=== PATIENT | male | born 1985 | race Two or more races ===

== ENCOUNTER 2018-05-25 22:19 | Emergency (ER) | payer OTHER ==
--- NOTE | 2018-05-25 22:30 | EDPHY ---
H & P Stated Complaint: CP X 1 HR Time Seen by Provider: 05/25/18 22:29 HPI/ROS: HPI CHIEF COMPLAINT: Burning discomfort in chest. HISTORY OF PRESENT ILLNESS: 33-year-old male, otherwise healthy denies any significant medical history, does not take any daily medications presents to the emergency room with chest pain. He describes it as a burning sensation in the center of his chest. Patient does state at times radiates around to his left back. 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 He has never had this before. He denies any shortness of breath or pleuritic pain. Denies chest pressure denies heavy weight on his chest, describes it at burning sensation left chest, radiating to left back. No numbness or tingling no arm pain no jaw pain or neck pain. Denies any alcohol this evening or spicy foods. Of note this patient is Kuwaiti-speaking only. I offered to hand heel seat fitter however they declined. His [id number] speaks fluent Bengali and Kuwaiti and translates appropriately. Declined System Analyst. Past Medical History: Denies significant medical history Past Surgical History: Left arm surgery Social History: Denies drugs alcohol tobacco Family History: Noncontributory ROS REVIEW OF SYSTEMS: 10 Systems were reviewed and negative with the exception of the elements mentioned in the history of present illness. Exam Constitutional nontoxic no acute distress, triage nursing summary reviewed, vital signs reviewed, awake/alert. Eyes normal conjunctivae and sclera, EOMI, PERRLA. HENT normal inspection, atraumatic, moist mucus membranes, no epistaxis, neck supple/ no meningismus, no raccoon eyes. Respiratory clear to auscultation bilaterally, normal breath sounds, no respiratory distress, no wheezing. Cardiovascular rate normal, regular rhythm, no murmur, no edema, distal pulses normal. Gastrointestinal soft, non-tender, no rebound, no guarding, normal bowel sounds, no distension, no pulsatile mass. Genitourinary no CVA tenderness. Musculoskeletal no midline vertebral tenderness, full range of motion, no calf swelling, no tenderness of extremities, no meningismus, good pulses, neurovascularly intact. Skin pink, warm, & dry, no rash, skin atraumatic. Neurologic awake, alert and oriented x 3, AAOx3, moves all 4 extremities equally, motor intact, sensory intact, CN II-XII intact, normal cerebellar, normal vision, normal speech. Psychiatric normal mood/affect. Heme/Lymph/Immune no lymphadenopathy. Differential Diagnosis: Differential diagnosis includes but is not limited to: ACS, atypical chest pain, pneumothorax, pneumonia, pulmonary embolism, aortic dissection, congestive heart failure, tumor, musculoskeletal pain, esophageal pain, GERD, peptic ulcer disease, pancreatitis Medical Decision Making: Plan for this patient IV establishment IV fluid bolus , director of cardiac cath lab, chest x-ray, EKG, troponin, D-dimer. Rule out acute coronary syndrome Burning discomfort in his chest will give GI cocktail to see if this improves. Re-evaluation: EKG interpretation by me on record in [facility] system. Impression time of EKG 2236, sinus rhythm rate of 77 nonspecific intraventricular conduction delay however no signs of acute ischemia. D-dimer 0.27 Troponin negative. Chest x-ray unremarkable. 0245: Patient complains of further chest pain left-sided burning sensation. It was initially relieved by GI cocktail. Repeat EKG and troponin ordered due to repeat cp Patient's repeat EKG does not show any acute ischemia. EKG interpretation by me on record in [facility] system. Impression time of EKG 2:55 a.m., sinus bradycardia rate of 45, nonspecific intraventricular conduction delay. There is no signs of acute ischemia here on this EKG. Plan for observation due to ongoing CP. Plan for re-evaluation with repeat troponin EKG. Patient states he has had intermittent chest pain while in the emergency room. ( at times he was sleeping) I do not have a great explanation for his chest pain, however give ongoing cp intermittant He has troponins that are negative D-dimer negative. Initially improved after GI cocktail However given that he is having ongoing chest pain I did consult Cardiology. 0530AM: Spoke with Dr. Fulton, he reviewed the patient's EKGs. He recommends admission for further rule out and echocardiogram. Would like the patient admitted to the hospitalist service. His repeat EKG done at 5:16 a.m. Shows sinus bradycardia rate of 47 with a nonspecific intraventricular conduction delay. No acute ischemia. When I compare this to his old EKG looks very similar. 0536: Updated patient about treatment plan. Patient agrees for hospital observation today for chest pain. Agrees for echocardiogram. Cardiology consult Dr. Fulton. Echocardiogram ordered. Hospitalist service consult Dr. Alda Whitfield accepts hospital admission. Reason for hospital admission intermittent chest pain, however rather unremarkable workup in the emergency room but plan for echocardiogram and cardiology to see. Source: Patient - Personal History Current Tetanus Diphtheria and Acellular Pertussis (TDAP): Yes - Medical/Surgical History Hx Asthma: No Hx Chronic Respiratory Disease: No Hx Diabetes: No Hx Cardiac Disease: No Hx Renal Disease: No Hx Cirrhosis: No Hx Alcoholism: No Hx HIV/AIDS: No Hx Splenectomy or Spleen Trauma: No Other PMH: L ARM - Social History Smoking Status: Never smoked Constitutional: Initial Vital Signs Temperature (C) 36.9 C 05/25/18 22:22 Heart Rate 81 05/25/18 22:22 Respiratory Rate 16 05/25/18 22:22 Blood Pressure 131/80 H 05/25/18 22:22 O2 Sat (%) 96 05/25/18 22:22 O2 Delivery Mode Room Air Allergies/Adverse Reactions: No Known Allergies Allergy (Unverified 05/25/18 22:21) Home Medications: Medication Instructions Recorded Ranitidine HCl 150 mg PO DAILY #30 capsule 05/26/18 Medical Decision Making - Data Points Laboratory Results: Laboratory Results 05/25/18 22:41 05/25/18 22:41 Medications Given: Discontinued Medications Al Hydroxide/Mg Hydroxide (Maalox Susp) 30 ml PO ONCE ONE Stop: 05/25/18 22:36 Last Admin: 05/25/18 22:44 Dose: 30 ml Hyoscyamine Sulfate (Levsin, Hyomax-Sl) 0.25 mg PO ONCE ONE Stop: 05/25/18 22:36 Last Admin: 05/25/18 22:44 Dose: 0.25 mg Sodium Chloride (Ns) 1,000 mls @ 0 mls/hr IV EDNOW ONE; Wide Open PRN Reason: Protocol Stop: 05/25/18 22:36 Last Admin: 05/25/18 22:47 Dose: 1,000 mls Lidocaine (Lidocaine 2% Viscous) 15 ml PO ONCE ONE Stop: 05/25/18 22:36 Last Admin: 05/25/18 22:44 Dose: 15 ml Point of Care Test Results: Chemistry 05/26/18 05/26/18 05/25/18 05:22 02:51 22:45 POC Troponin I 0.00 ng/mL ng/mL 0.00 ng/mL ng/mL 0.00 ng/mL ng/mL (0.00-0.08) (0.00-0.08) (0.00-0.08) Departure - Departure Disposition: [facility] Inpatient Acute Clinical Impression: Chest pain Qualifiers: Chest pain type: unspecified Qualified Code(s): R07.9 - Chest pain, unspecified Condition: Good
[2018-05-25] MEDS ORDERED: MAG HYDROX/AL HYDROX/SIMETH 30 ML UDCUP PO ONE (22:35)
[2018-05-25] MEDS ORDERED: LIDOCAINE 2% VISCOUS 15 ML UDCUP PO ONE (22:35)
[2018-05-25] MEDS ORDERED: NS 1,000 ML IV ONE (22:35)
[2018-05-25] MEDS ORDERED: HYOSCYAMINE SULFATE 0.125 MG TAB PO ONE (22:35)
[2018-05-25 22:55] LABS: PLATELET COUNT 262 10^3/uL (150-400)
[2018-05-25 23:03] LABS: INR 0.96 (0.83-1.16)
[2018-05-26] MEDS ORDERED: ASPIRIN 325 MG TAB PO ONE (05:31)
[2018-05-26] MEDS ORDERED: KETOROLAC 15 MG/1 ML SDV IVP ONE (05:32)
[2018-05-26] MEDS ORDERED: ONDANSETRON 4 MG/2 ML VIAL IVP PRN (05:36)
[2018-05-26] MEDS ORDERED: ACETAMINOPHEN 325 MG TAB PO PRN (05:36)
[2018-05-26] MEDS ORDERED: ONDANSETRON DISINTEGRATING 4 MG TAB PO PRN (05:36)
--- NOTE | 2018-05-26 06:10 | PDGENHP ---
History and Physical - Chief Complaint Chest pain - History of Present Illness 33 yo M w/ no PMHx presents with chest pain. The patient tells me he began to noted moderate to severe L sided chest pain this evening while watching TV. The pain lasted over an hour. He has never had pain like this in the past. He has no personal or family history of cardiac disease. He denies tobacco or drug use. Evaluation in the ED notable for negative troponin and ECG with minimal ST elevations in anterior leads, which may be J point elevation. Cardiology was called from the ED (Dr. Fulton) who requested the patient be admitted and an echocardiogram obtained. Cardiology will see him this morning. Case discussed with ED physician Dr. Milligan; records reviewed and summarized above. History Information - Allergies/Home Medication List Allergies/Adverse Reactions: No Known Allergies Allergy (Unverified 05/25/18 22:21) Home Medications: NK [No Known Home Meds] 05/25/18 [Last Taken Unknown] I have personally reviewed and updated: family history, medical history - Past Medical History no pertinent PMH - Surgical History Additional surgical history: L arm surgery for fracture - Family History Additional family history: Denies family hx of cardiac disease - Social History Smoking Status: Never smoked Review of Systems Review of Systems: ROS: 10pt was reviewed & negative except for what was stated in HPI & below Physical Exam Physical Exam: Temp Pulse Resp BP Pulse Ox 36.9 C 57 L 18 108/67 94 05/25/18 22:22 05/26/18 03:38 05/26/18 03:38 05/26/18 03:38 05/26/18 03:38 Constitutional: no apparent distress, obese Eyes: PERRL, EOMI Ears, Nose, Mouth, Throat: moist mucous membranes, no oral mucosal ulcers Cardiovascular: regular rate and rhythym, no murmur, rub, or gallop Respiratory: no respiratory distress, clear to auscultation Gastrointestinal: normoactive bowel sounds, soft, non-tender abdomen Skin: warm, normal color Musculoskeletal: full muscle strength, no muscle tenderness Neurologic: AAOx3, CN II-XII Intact Psychiatric: interacting appropriately, not anxious Lab Data & Imaging Review 05/25/18 22:41 05/25/18 22:41 WBC 5.79 10^3/uL (3.80-9.50) 05/25/18 22:41 RBC 4.88 10^6/uL (4.40-6.38) 05/25/18 22:41 Hgb 14.8 g/dL (13.7-17.5) 05/25/18 22:41 Hct 43.2 % (40.0-51.0) 05/25/18 22:41 MCV 88.5 fL (81.5-99.8) 05/25/18 22:41 MCH 30.3 pg (27.9-34.1) 05/25/18 22:41 MCHC 34.3 g/dL (32.4-36.7) 05/25/18 22:41 RDW 11.7 % (11.5-15.2) 05/25/18 22:41 Plt Count 262 10^3/uL (150-400) 05/25/18 22:41 MPV 9.5 fL (8.7-11.7) 05/25/18 22:41 Neut % (Auto) 49.2 % (39.3-74.2) 05/25/18 22:41 Lymph % (Auto) 38.9 % (15.0-45.0) 05/25/18 22:41 Bracken % (Auto) 8.8 % (4.5-13.0) 05/25/18 22:41 Eos % (Auto) 2.6 % (0.6-7.6) 05/25/18 22:41 Baso % (Auto) 0.3 % (0.3-1.7) 05/25/18 22:41 Nucleat RBC Rel Count 0.0 % (0.0-0.2) 05/25/18 22:41 Absolute Neuts (auto) 2.85 10^3/uL (1.70-6.50) 05/25/18 22:41 Absolute Lymphs (auto) 2.25 10^3/uL (1.00-3.00) 05/25/18 22:41 Absolute Monos (auto) 0.51 10^3/uL (0.30-0.80) 05/25/18 22:41 Absolute Eos (auto) 0.15 10^3/uL (0.03-0.40) 05/25/18 22:41 Absolute Basos (auto) 0.02 10^3/uL (0.02-0.10) 05/25/18 22:41 Absolute Nucleated RBC 0.00 10^3/uL (0-0.01) 05/25/18 22:41 Immature Gran % 0.2 % (0.0-1.1) 05/25/18 22:41 Immature Gran # 0.01 10^3/uL (0.00-0.10) 05/25/18 22:41 PT 13.0 SEC (12.0-15.0) 05/25/18 22:41 INR 0.96 (0.83-1.16) 05/25/18 22:41 APTT 26.1 SEC (23.0-38.0) 05/25/18 22:41 D-Dimer < 0.27 ug/mLFEU (0.00-0.50) 05/25/18 22:41 Sodium 140 mEq/L (135-145) 05/25/18 22:41 Potassium 3.8 mEq/L (3.5-5.2) 05/25/18 22:41 Chloride 109 mEq/L (97-110) 05/25/18 22:41 Carbon Dioxide 24 mEq/l (22-31) 05/25/18 22:41 Anion Gap 7 mEq/L (6-14) 05/25/18 22:41 BUN 20 mg/dL (7-23) 05/25/18 22:41 Creatinine 0.8 mg/dL (0.7-1.3) 05/25/18 22:41 Estimated GFR > 60 05/25/18 22:41 Glucose 134 mg/dL (70-100) H 05/25/18 22:41 Calcium 9.2 mg/dL (8.5-10.4) 05/25/18 22:41 Magnesium 2.0 mg/dL (1.6-2.3) 05/25/18 22:41 Total Bilirubin 0.4 mg/dL (0.1-1.4) 05/25/18 22:41 Conjugated Bilirubin 0.1 mg/dL (0.0-0.5) 05/25/18 22:41 Unconjugated Bilirubin 0.3 mg/dL (0.0-1.1) 05/25/18 22:41 AST 21 IU/L (17-59) 05/25/18 22:41 ALT 27 IU/L (21-72) 05/25/18 22:41 Alkaline Phosphatase 63 IU/L (38-126) 05/25/18 22:41 POC Troponin I 0.00 ng/mL (0.00-0.08) 05/26/18 05:22 NT-Pro-B Natriuret Pep < 11 pg/mL (0-125) 05/25/18 22:41 Total Protein 6.8 g/dL (6.3-8.2) 05/25/18 22:41 Albumin 4.2 g/dL (3.5-5.0) 05/25/18 22:41 Lipase 87 IU/L (23-300) 05/25/18 22:41 Imaging Review: Imaging Impressions Chest X-Ray 05/25/18 22:36 Impression: No acute abnormality. Visualized and Interpreted EKG results: Yes EKG Interpretation: Positive for: normal sinsus rhythm, other (Minimal anterior MEGAN's, J point?) Assessment & Plan Assessment: 33 yo M presents with chest pain. Plan: 1. Chest pain - Unclear etiology; no prior cardiac history. Troponin negative, ECG (personally reviewed/interpreted) with minimal anterior MEGAN's, which appear like benign J-point elevation. Cardiology consulted in the ED who requested echocardiogram and admission for observation. - Monitor on telemetry, repeat troponin at 100 - TTE ordered - Cardiology will see this morning - NTG, ECG PRN for chest pain Diet - Regular Code - Full Ppx - Low risk, ambulate TID Dispo - Admit under observation status
[2018-05-26] MEDS ORDERED: NITROGLYCERIN 0.4 MG BTL SL PRN (06:21)
[2018-05-26] MEDS ORDERED: FAMOTIDINE 20 MG/NACL 50 ML IV SCH (09:00)
--- NOTE | 2018-05-26 09:24 | GCON ---
[f rep st] CONSULTATION CARDIOLOGY CONSULTATION CHIEF COMPLAINT: Chest pain. HISTORY OF PRESENT ILLNESS: This is a 33-year-old male who presented to [facility] with complaints of chest pain. The patient describes the pain as burning discomfort in his substernal area with some radiati on to his left breast. He said that it initiated at rest yesterday. He came to the emergency room f or further evaluation. He has never had this pain before and never had it during exertion. No drug use or alcohol use, and no smoking. Blood pressure and heart rate are currently stable. ECG in the ER showed what appeared to be sinus rhythm with minimal J-point elevation. Troponins have been negat francisco x3 sets. Currently, the patient indicates that his pain has decreased significantly from an 8/10 down to 3/10, though it is still sore around his left breast region. PAST MEDICAL HISTORY: No significant past medical history. PAST SURGICAL HISTORY: No surgical history. Apparently, some remote history of left arm surgery. SOCIAL HISTORY: No drugs, alcohol, or smoking according to the patient. FAMILY HISTORY: Patient denies any history of coronary artery disease in the family. REVIEW OF SYSTEMS: Patient currently denies any visual changes. No headache. No throat pain. No j aw pain. No ear pain. No back pain. He does indicate a dull substernal discomfort around his midst ernum/left breast region. No lower abdominal pain. No lower extremity pain. No neurologic deficits . PHYSICAL EXAMINATION: VITAL SIGNS: Patient afebrile 96, blood pressure 110/70, heart rate 72, respi ratory rate 12, sat 95% on room air. HEENT: Pupils equal, round, and reactive to light and accommod ation. Extraocular movements intact. CARDIOVASCULAR: Regular rate and rhythm, S1, S2. LUNGS: Gomez ar to auscultation bilaterally. ABDOMEN: Soft, nontender, no guarding. EXTREMITIES: No clubbing, no cyanosis, no edema. NEUROLOGIC: Alert and oriented x3. LABORATORY VALUES: Show troponins negative x3 sets. ECG currently, a repeat, shows normal sinus rhy thm with ST evolution. ASSESSMENT AND PLAN: Chest pain. At this time, the patient's chest pain may be musculoskeletal vers us gastroesophageal reflux disease. I will start him on Pepcid 20 mg IV twice daily, first dose to b e given now. Check an echocardiogram. Given the patient's improved symptoms with just conservative management, as well as the fact that troponins are negative x3 sets and there are no ECG changes, as well as his age and lack of risk factors, I feel that we can continue with a conservative approach at this point, and if the patient is pain-free later this afternoon, he would be cleared for discharge to follow up as an outpatient. /[id number]/MODL
--- NOTE | 2018-05-26 09:36 | ECHO ---
[email or web address] [address] [address] Main: [phone] Fax: [email or web address] Echocardiogram Name: RITU FRIAS MR#: [id number] Study Date: 05/26/2018 Study Time: 08:39 AM Date of : 1985 Age: 33 year(s) Height: 182.9 cm (72 in.) Weight: 113.4 kg (250 lb.) BSA: 2.34 m2 Gender: Male Examination: Echo Indication: cp Image Quality: Adequate Contrast: Requested by: Diego Cárdenas BP: 108 mmHg/67 mmHg Heart Rate: Rhythm: Indication: cp Procedure Staff Contact Manager: Abby Farrell RDCS Reading Physician: oJsh Anaya MD Requesting Provider: Conclusions: Low normal left ventricular systolic function. EF is 51 %. Mild mitral valve regurgitation is present. Mild tricuspid regurgitation is present. The pulmonary artery pressure is normal. Measurements: Chambers Valvular Assessment AV/MV Valvular Assessment TV/PV Normal Normal Normal Name Value Range Name Value Range Name Value Range Ao Jodie (2D): 3.8 cm (1.4 cm-2.6 AV Vmax: 0.99 m/s (1 m/s-1.7 TR Vmax: 2.13 mm/s ( - ) cm) m/s) TR PGmax: 18 mmHg ( - ) IVSd (2D): 0.9 cm (0.6 cm-1.1 AV maxP mmHg ( - ) syst. PAP: 23 mmHg ( - ) cm) AV meanP mmHg ( - ) PV Vmax: 0.73 m/s (0.6 m/s-0.9 LVDd (2D): 5.4 cm (4.2 cm-5.9 LVOT Vmax: 0.74 m/s (0.7 m/s-1.1 m/s) cm) m/s) PV PGmax: 2 mmHg ( - ) LVDs (2D): 3.8 cm (2.1 cm-4 VIKI (Vmax): 3.4 cm2 ( - ) cm) VIKI (VTI): 3.0 cm ( - ) LVPWd (2D): 0.9 cm (0.6 cm-1 MV E Vmax: 0.76 m/s ( - ) cm) MV A Vmax: 0.40 m/s ( - ) LVOTd 2.4 cm 2.4 cm mm MV E/A: 1.90 ( - ) LVEF (BP): 51 % (>=55 %) MV PHT: 0.064 s ( - ) RVDd(2D): 3.9 cm (1.9 cm-3.8 cmmm) MVA (PHT): 3.4 s ( - ) Continued Measurements: Chambers Valvular Assessment AV/MV Valvular Assessment TV/PV Name Value Name Value Name Value LADs: 3.7 cm MV DecTime: 208 m/s CVP (est.): 5 mmHg Patient: RITU FRIAS Study Date: 05/26/2018 Page 1 of 2 08:39 AM LADs Lon.8 cm MV E/E' Septal: 8.70 LA Area: 20.7 cm2 MV E/E' Lateral: 7.90 LA Volume: 64 ml LA Volume Index: 27.4 ml/m2 RA Area: 19.7 cm2 Additional Vessels Name Value Ao Ascendin.1 cm Inferior Vena Cava: 1.6 cm Findings: Left Ventricle: Normal size left ventricle. No LV hypertrophy. Low normal left ventricular systolic function. EF is 51 %. Normal diastolic LV function. Right Ventricle: Normal size right ventricle. Normal RV function. Left Atrium: The left atrium is normal in size. Right Atrium: The right atrium is normal in size. Mitral Valve: The mitral valve is normal in appearance and function. Mild mitral valve regurgitation is present. No mitral stenosis is present. Aortic Valve: The aortic valve is tri-leaflet. There is no significant aortic valve regurgitation. No aortic valve stenosis is present. Tricuspid Valve: The tricuspid valve is normal in appearance and function. Mild tricuspid regurgitation is present. The pulmonary artery pressure is normal. Right ventricular systolic pressure measures 23mmHg. Pulmonic Valve: The pulmonic valve is normal in appearance and function. There is no pulmonic regurgitation seen. Aorta: The aorta is normal. Normal size aortic root measuring 3.8 cm. Normal size ascending aorta measuring 3.1 cm. IVC: The IVC is normal sized. Pericardium: No pericardial effusion. (No Signature Object) Patient: RITU FRIAS Study Date: 05/26/2018 Page 2 of 2 08:39 AM [id number]
[2018-05-26 15:14] VITALS: BP 122/73
--- NOTE | 2018-05-28 07:33 | CPEKG ---
Test Reason : OPEN Blood Pressure : / mmHG Vent. Rate : 048 BPM Atrial Rate : 048 BPM P-R Int : 145 ms QRS Dur : 123 ms QT Int : 466 ms P-R-T Axes : 025 054 023 degrees QTc Int : 417 ms Sinus bradycardia Nonspecific intraventricular conduction delay Confirmed by Diego Jules ([id number]) on 05/28/2018 7:33:25 AM Referred By: Diego Jules Confirmed By:Diego Jules
--- NOTE | 2018-05-28 07:33 | CPEKG ---
Test Reason : OPEN Blood Pressure : / mmHG Vent. Rate : 047 BPM Atrial Rate : 044 BPM P-R Int : 141 ms QRS Dur : 126 ms QT Int : 468 ms P-R-T Axes : 015 069 022 degrees QTc Int : 414 ms Sinus bradycardia Nonspecific intraventricular conduction delay Minimal ST elevation, anterior leads Confirmed by Diego Jules ([id number]) on 05/28/2018 7:33:24 AM Referred By: Diego Jules Confirmed By:Diego Jules
--- NOTE | 2018-05-28 07:33 | CPEKG ---
Test Reason : OPEN Blood Pressure : / mmHG Vent. Rate : 045 BPM Atrial Rate : 045 BPM P-R Int : 141 ms QRS Dur : 120 ms QT Int : 469 ms P-R-T Axes : 022 072 034 degrees QTc Int : 406 ms Sinus bradycardia Atrial premature complex Nonspecific intraventricular conduction delay Confirmed by Diego Jules ([id number]) on 05/28/2018 7:33:25 AM Referred By: Diego Jules Confirmed By:Diego Jules
--- NOTE | 2018-05-28 07:34 | CPEKG ---
Test Reason : OPEN Blood Pressure : / mmHG Vent. Rate : 077 BPM Atrial Rate : 077 BPM P-R Int : 148 ms QRS Dur : 115 ms QT Int : 398 ms P-R-T Axes : 036 088 033 degrees QTc Int : 451 ms Sinus rhythm Nonspecific intraventricular conduction delay Confirmed by Diego Jules ([id number]) on 05/28/2018 7:33:26 AM Referred By: Diego Jules Confirmed By:Diego Jules
== END 2018-05-26 15:14 | disposition still patient (30) ==
LOC: UNDOADMOB 05-26 05:36
DX: R07.9 Chest pain, unspecified (principal)
CPT/HCPCS: 84484-ER